=== PATIENT | female | born 1985 | race American Indian/Alaskan Native ===

== ENCOUNTER 2016-06-08 07:36 | Outpatient (CLI) | payer MEDICAID ==
[2016-06-08] MEDS ORDERED: LACTATED RINGERS 500 ML IV ONE (07:51)
[2016-06-08 08:51] LABS: Bacteria,Urine 1+ /HPF (Negative); Bilirubin,Urine NEG (Negative); Blood,Urine NEG (Negative); Ketones,Urine NEG (Negative); Leukocyte Esterase,Urine MOD (Negative); Mucus,Urine 3+ /HPF; Nitrite,Urine NEG (Negative)
[2016-06-08 09:24] VITALS: BP 115/68
== END 2016-06-08 09:04 | disposition home or self-care (01) ==
LOC: TRG 07:36
PROVIDERS: ATTEND Obstetrics & Gynecology
DX: O47.03 False labor before 37 completed weeks of gestation, third trimester (principal); Z3A.36 36 weeks gestation of pregnancy
CPT/HCPCS: 81001

== ENCOUNTER 2016-07-04 10:57 | Inpatient (IN) | payer MEDICAID ==
[2016-07-04] MEDS ORDERED: ePHEDrine SULFATE IV PRN ×2 (13:01→19:34)
[2016-07-04] MEDS ORDERED: BRETHINE IVP PRN (13:01)
[2016-07-04] MEDS ORDERED: BRETHINE SUB-Q PRN (13:01)
[2016-07-04] MEDS ORDERED: ZOFRAN IV PRN (13:01)
[2016-07-04] MEDS ORDERED: XYLOCAINE 2% INFILTRATI ONE (13:01)
[2016-07-04] MEDS ORDERED: SUBLIMAZE IV PRN (13:01)
[2016-07-04] MEDS ORDERED: MINERAL OIL PO PRN (13:01)
--- NOTE | 2016-07-04 13:04 | History and Physical Report ---
History of Present Illness Date of examination: 07/04/16 Date of admission: 07/04/16 10:57 History of present illness: 30 yo LMP EDC 07/04/16 @ 40 weeks gestation presented to office for routine visit. U/S done and patient found to have oligohydramnios with a KATHE of 5.07cm. BPP 08/01. Sent for induction of labor. She was a transfer into care at 19 weeks gestation. course complicated by nausea nd vomiting and lmultiple large fibroids. She is GBS negative. Past History Past Medical History: no pertinent history Past Surgical History: other (knee surgery) Family/Genetic History: diabetes, hypertension Social history: no significant social history, lives with family - Obstetrical History Expected Date of Delivery: 07/04/16 Actual Gestation: 40 Week(s) 0 Day(s) : 2 Para: 1 (7-9oz male 2009) Number of Living Children: 1 Medications and Allergies Allergies Allergy/AdvReac Type Severity Reaction Status Date / Time No Known Allergies Allergy Verified 06/08/16 07:50 Home Medications Medication Instructions Recorded Confirmed Last Taken Type Vitamin Tablet 1 tab PO DAILY 06/08/16 06/08/16 06/07/16 History Active Meds: Active Medications Butorphanol Tartrate (Stadol) 2 mg IV Q2H PRN PRN Reason: Pain , Severe (7-10) Review of Systems All systems: negative - Vital Signs Vital signs: Vital Signs Pulse BP 73 124/60 07/04/16 12:35 07/04/16 12:35 Temp Pulse Resp BP Pulse Ox 73 124/60 07/04/16 12:35 07/04/16 12:35 - Physical Exam Abdomen: Positive: normal appearance - Obstetrical FHR: category 1 Uterine Contraction Monitor Mode: External Cervical Dilatation: 1 (EFW 7-14) Cervical Effacement Percentage: 60 Results All other labs normal. Assessment and Plan A: IUP at 40 weeks Oligohydramnios Unfavorable Cervix P: Induction of labor Active jeannie't
[2016-07-04] MEDS ORDERED: PNEUMOVAX 23 IM ONE (13:39)
[2016-07-04] MEDS ORDERED: FLUARIX QUAD 2016-2017(36 MOS+) IM ONE (13:39)
[2016-07-04] MEDS ORDERED: PITOCin/NS 20 UNIT/1000ML DRIP 20 UNITS/1,000 ML BAG IV SCH (14:00)
[2016-07-04] MEDS ORDERED: PITOCin/NS 30 UNIT/500ML 30 UNITS/500 ML BAG IV SCH (14:00)
[2016-07-04 14:06] LABS: Hematocrit 32.4 % (30.3-42.9); Hemoglobin 10.7 gm/dl (10.1-14.3); Mean Corpuscular HGB Conc 33 % (30-34); Mean Corpuscular Hemoglobin 28 pg (28-32); Mean Corpuscular Volume 84 fl (79-97); Platelet Count 251 K/mm3 (140-440); Red Blood Count 3.84 M/mm3 (3.65-5.03); Red Cell Distribution Width 14.4 % (13.2-15.2); White Blood Count 7.1 K/mm3 (4.5-11.0)
[2016-07-04] MEDS: PITOCin/NS 30 UNIT/500ML 30 UNITS/500 ML BAG IV SCH ×4 (14:30→16:54)
[2016-07-04] MEDS: LACTATED RINGERS 1,000 ML IV SCH ×2 (14:30→18:27)
[2016-07-04] MEDS: STADOL IV PRN ×2 (15:45→17:52)
[2016-07-04] MEDS ORDERED: NARCAN 2 MG/2 ML IV PRN (19:34)
--- NOTE | 2016-07-04 19:35 | Anesthesia Consultation ---
Anesthesia Consult and Med Hx Date of service: 07/04/16 - Airway Anesthetic Teeth Evaluation: Good ROM Head & Neck: Adequate Mental/Hyoid Distance: Adequate Mallampati Class: Class II Intubation Access Assessment: Probably Good - Pulmonary Exam CTA: Yes - Cardiac Exam Cardiac Exam: RRR - Pre-Operative Health Status ASA Pre-Surgery Classification: ASA2 Proposed Anesthetic Plan: Epidural - Pulmonary Hx Asthma: Yes (as child) COPD: No Hx Pneumonia: No - Cardiovascular System Hx Hypertension: No - Central Nervous System Hx Seizures: No (febrile seizure age 4 x1) Hx Psychiatric Problems: No - Endocrine Hx Renal Disease: No Hx End Stage Renal Disease: No Hx Hypothyroidism: No Hx Hyperthyroidism: No - Hematic Hx Anemia: No Hx Sickle Cell Disease: No (brothers have sickle cell) - Other Systems Hx Alcohol Use: No
[2016-07-04] MEDS ORDERED: fentaNYL-BUPIV 2 MCG/ML-0.125% 200 MCG/100 ML BAG EPIDURAL SCH (20:00)
--- NOTE | 2016-07-05 00:06 | Procedure Note ---
OB Delivery Note - Delivery Date of Delivery: 07/04/16 (7-2oz female @ [id number]) Surgeon: REESE WILSON Estimated blood loss: 100cc - Vaginal Delivery presentation: vertex Delivery position: OA Delivery induction: oxytocin Delivery monitor: external FHT, external uterine Route of delivery: other Delivery placenta: spontaneous Delivery cord: 3 umbilical vessels Delivery laceration: none Anesthesia: epidural - Infant A at 1 minute: 8 at 5 minutes: 9 Gender: Female ( viable female in OA postion over intact perineum and under epidural anethesia. Infant bulb suctioned, dried and placed skin to skin. Spont lusty cry. Spont. placenta. Bleeding moderate. Fundus messaged firm , one large clot expressed. Pitocin infusing via IV. Bleeding scant after message and FF3 below U, ML.)
[2016-07-05] MEDS ORDERED: LANSINOH TP PRN (00:09)
[2016-07-05] MEDS ORDERED: TUCKS PAD TP PRN (00:09)
[2016-07-05] MEDS ORDERED: PHENERGAN PR PRN (00:09)
[2016-07-05] MEDS ORDERED: DERMOPLAST TP PRN (00:09)
[2016-07-05] MEDS ORDERED: DULCOLAX PR PRN (00:09)
[2016-07-05] MEDS ORDERED: NORCO 5/325 PO PRN (00:09)
[2016-07-05] MEDS ORDERED: MILK OF MAGNESIA PO PRN (00:09)
[2016-07-05] MEDS ORDERED: TYLENOL PO PRN (00:09)
[2016-07-05] MEDS ORDERED: BENADRYL PO PRN (00:09)
[2016-07-05] MEDS ORDERED: SODIUM CHLORIDE FLUSH SYRINGE 10 ML IV NR (01:00)
[2016-07-05] MEDS ORDERED: PRENATAL VITAMIN PO SCH (10:00)
--- NOTE | 2016-07-05 10:31 | Progress Note ---
Subjective Date of service: 07/05/16 Interval history: 1st day after normal vaginal delivery Patient is in the bed, comfortable. Pain is well under control. Ambulated well. No residual neurological deficit. No anesthesia complications Objective - Constitutional Vitals: Vital Signs - 12hr 07/04/16 07/04/16 07/04/16 22:33 22:38 22:43 Pulse Rate 79 81 84 Blood Pressure O2 Sat by Pulse 97 97 96 Oximetry 07/04/16 07/04/16 07/04/16 22:48 22:51 22:53 Pulse Rate 77 77 80 Blood Pressure 111/54 O2 Sat by Pulse 97 98 Oximetry 07/04/16 07/04/16 07/04/16 22:58 23:03 23:08 Pulse Rate 82 82 78 Blood Pressure O2 Sat by Pulse 97 96 96 Oximetry 07/04/16 07/04/16 07/04/16 23:13 23:18 23:23 Pulse Rate 79 84 83 Blood Pressure O2 Sat by Pulse 97 99 99 Oximetry 07/04/16 07/04/16 07/04/16 23:28 23:33 23:38 Pulse Rate 86 81 83 Blood Pressure O2 Sat by Pulse 99 100 99 Oximetry 07/04/16 07/05/16 07/05/16 23:43 00:08 00:13 Pulse Rate 89 78 85 Blood Pressure 129/64 O2 Sat by Pulse 99 100 98 Oximetry 07/05/16 07/05/16 07/05/16 00:18 00:20 00:23 Pulse Rate 82 83 87 Blood Pressure 119/57 O2 Sat by Pulse 100 98 Oximetry 07/05/16 07/05/16 07/05/16 00:28 00:33 00:34 Pulse Rate 85 95 H 98 H Blood Pressure O2 Sat by Pulse 99 98 91 Oximetry 07/05/16 07/05/16 07/05/16 00:35 00:38 00:43 Pulse Rate 96 H 92 H 95 H Blood Pressure 134/73 O2 Sat by Pulse 99 99 Oximetry 07/05/16 07/05/16 07/05/16 00:48 00:50 00:53 Pulse Rate 106 H 99 H 99 H Blood Pressure 131/61 O2 Sat by Pulse 99 98 Oximetry 07/05/16 07/05/16 07/05/16 00:58 01:03 01:05 Pulse Rate 92 H 82 81 Blood Pressure 119/59 O2 Sat by Pulse 99 100 Oximetry 07/05/16 07/05/16 07/05/16 01:08 01:13 01:18 Pulse Rate 95 H 85 97 H Blood Pressure O2 Sat by Pulse 99 98 98 Oximetry 07/05/16 07/05/16 07/05/16 01:20 01:23 01:28 Pulse Rate 90 95 H 92 H Blood Pressure 122/55 O2 Sat by Pulse 99 98 Oximetry 07/05/16 07/05/16 07/05/16 01:33 01:35 01:38 Pulse Rate 92 H 86 87 Blood Pressure 130/60 O2 Sat by Pulse 96 98 Oximetry 07/05/16 07/05/16 07/05/16 01:43 01:48 01:50 Pulse Rate 86 83 97 H Blood Pressure 125/59 O2 Sat by Pulse 98 97 Oximetry 07/05/16 01:53 Pulse Rate 88 Blood Pressure O2 Sat by Pulse 97 Oximetry - Labs CBC & Chem 7: 07/04/16 12:55
[2016-07-05 13:06] LABS: Hemoglobin 10.3 gm/dl (10.1-14.3)
[2016-07-05] MEDS: MOTRIN PO SCH (18:00)
[2016-07-05] MEDS: FEOSOL PO SCH (20:13)
[2016-07-06] MEDS: MOTRIN PO SCH ×2 (00:40→06:19)
[2016-07-06] MEDS ORDERED: M-M-R II VACCINE SUB-Q ONE (06:00)
[2016-07-06] MEDS ORDERED: BOOSTRIX IM ONE (06:05)
[2016-07-06] MEDS: FEOSOL PO SCH (13:36)
--- NOTE | 2016-07-06 15:13 | Progress Note ---
Assessment and Plan PPD 1 s/p . Doing well Subjective - Subjective Date of service: 07/06/16 Patient reports: appetite normal, voiding normally, ambulating normally : doing well Objective - Vital Signs Latest vital signs: Vital Signs Temp Pulse Resp Resp BP BP 07/06/16 08:20 98.0 F 63 16 128/66 07/06/16 00:03 97.8 F 66 18 119/57 07/05/16 20:15 17 07/05/16 16:20 97.7 F 100 H 20 133/79 Intake and Output 07/06/16 07/06/16 07/06/16 06:59 14:59 22:59 Intake Total 240 Balance 240 Intake: Oral 240 Other: Total, Intake Amount 240 # Voids Void 1 - Exam Breasts: Present: deferred Cardiovascular: Present: Regular rate, Normal S1, Normal S2 Lungs: Present: Clear to auscultation, Normal air movement Abdomen: Present: normal appearance, soft, normal bowel sounds Extremities: Present: normal Deep Tendon Reflex Grade: Normal +2
--- NOTE | 2016-07-06 15:18 | Discharge Summary ---
Providers - Providers Date of Admission: 07/04/16 10:57 Date of discharge: 07/06/16 Attending physician: KIM MELENDEZ Primary care physician: KIM MELENDEZ Hospitalization Reason for admission: active labor Delivery: Incision: normal Discharge diagnosis: IUP at term delivered [place] baby: female Condition at discharge: Good Disposition: DISCHARGED TO HOME OR SELFCARE Plan - Discharge Medications Prescriptions: Ibuprofen [Motrin 600 MG tab] 600 mg PO Q6H #40 tablet Vit-Fe Fumar-FA [ Vitamin] 1 each PO QDAY #30 tablet - Provider Discharge Summary Activity: routine, no sex for 6 weeks, no heavy lifting 4 weeks, no strenuous exercise Diet: routine Instructions: routine Additional instructions: [] Smoking cessation referral if applicable(refer to patient education folder for contact #) [] Refer to [facility] Booklet Call your doctor immediately for: * Fever > 100.5 * Heavy vaginal bleeding ( >1 pad per hour) * Severe persistent headache * Shortness of breath * Reddened, hot, painful area to leg or breast * Drainage or odor from incision. * Keep incision clean and dry at all times and follow doctor's instructions regarding bathing/showering - Follow up plan Follow up: KIM MELENDEZ MD [Primary Care Provider] - 7 Days
[2016-07-06 16:29] VITALS: BP 126/77
== END 2016-07-06 16:30 | disposition home or self-care (01) | DRG 775 ==
LOC: LD 10:57 → OB 07-05 03:02
PROVIDERS: ADMIT Obstetrics & Gynecology; ATTEND Obstetrics & Gynecology
PROC: 10E0XZZ Delivery of Products of Conception, External Approach (ICD-10-PCS; principal; 2016-07-04)
PROC: 3E033VJ Introduction of Other Hormone into Peripheral Vein, Percutaneous Approach (ICD-10-PCS; 2016-07-04)
PROC: 3E0S3CZ (ICD-10-PCS; 2016-07-04)
PROC: 00HU33Z Insertion of Infusion Device into Spinal Canal, Percutaneous Approach (ICD-10-PCS; 2016-07-04)
DX: O41.03X0 Oligohydramnios, third trimester, not applicable or unspecified (principal); Z3A.40 40 weeks gestation of pregnancy; Z37.0 Single live birth; O21.9 Vomiting of pregnancy, unspecified; O34.10 Maternal care for benign tumor of corpus uteri, unspecified trimester; D25.9 Leiomyoma of uterus, unspecified
CPT/HCPCS: 36415; 85014; 85018; 85027; 86850; 86900; 86901; 90471; 90686; 90715; 90732; 99211; A6250; G0463; J0595; J2590; J7120